=== PATIENT | male | born 1940 | race Caucasian/White ===

== ENCOUNTER → 2017-05-05 | Outpatient (CLI) | payer MEDICARE ==
--- NOTE | 2017-05-05 16:04 | REP ---
CHEST, TWO VIEWS: Two views of the chest are performed and compared to prior study of 09/18/2015. The patient is status post right pneumonectomy. There is shift of heart and mediastinal structures to the right and multiple metallic clips and sutures are seen on the right. Left lung demonstrates no abnormal opacities with mild linear fibroatelectatic change in the lung base. Heart size is not well evaluated. There is mild calcification and ectasia of the thoracic aorta. Visualized mediastinal silhouette is unchanged. There are mild degenerative changes of the spine. IMPRESSION: Stable postsurgical and chronic findings as discussed above. No change since prior study of 09/18/2015. Signed by Zachary Keith MD 05/06/2017 07:38 P
== END ==
LOC: M SMT 13:39
PROVIDERS: ATTEND Internal Medicine Pulmonary Disease
DX: J44.9 Chronic obstructive pulmonary disease, unspecified (principal)

== ENCOUNTER 2018-09-23 07:46 | Inpatient (IN) | payer MEDICARE ==
[2018-09-23] MEDS: ALBUTEROL SULFATE 2.5 MG/0.5 ML INH NEB SOLN NEB (08:34)
[2018-09-23 08:59] LABS: ABG BASE EXCESS 3.7 (-2.0-2.0); ABG HCO3 30.5 MEQ/L (22.0-26.0); ABG PARTIAL PRESSURE CO2 54.8 mmHg (35.0-45.0); ABG PARTIAL PRESSURE O2 73.9 mmHg (75.0-100.0); ABG STANDARD HCO3 27.7 MEQ/L (22.0-26.0); ABG TOTAL CO2 32.2 MEQ/L (23.0-31.0); ABG pH (ARTERIAL) 7.363 UNITS (7.350-7.450)
[2018-09-23] MEDS: ADVAIR HFA 230/21MCG INHALER INH ×2 (09:00→21:25)
[2018-09-23 09:13] LABS: BASO % 0.2 % (0.0-1.0); EOS # 0.2 10^3/uL (0.0-0.50); EOS % 1.9 % (0.0-3.0); HEMATOCRIT 44.6 % (42.0-52.0); HEMOGLOBIN 14.4 g/dl (13.5-17.5); IMMATURE GRANULOCYTE % 0.5 % (0-3.0); LYMPH # 1.2 10^3/uL (1.5-4.5); LYMPH % 14.4 % (24.0-44.0); MEAN CORPUSCULAR HEMOGLOBIN 30.4 pg (27.0-33.0); MEAN CORPUSCULAR HGB CONC 32.3 g/dl (32.0-36.5); MEAN CORPUSCULAR VOLUME 94.3 fl (80.0-96.0); MONO # 0.9 10^3/uL (0.0-0.8); MONO % 11.7 % (0.0-5.0); NEUTROPHILS # 5.8 10^3/uL (1.8-7.7); NEUTROPHILS % 71.3 % (36.0-66.0); PLATELET COUNT, AUTOMATED 205 10^3/uL (150-450); RED BLOOD COUNT 4.73 10^6/uL (4.30-6.10); WHITE BLOOD COUNT 8.1 10^3/uL (4.0-10.0)
[2018-09-23] MEDS: cefTRIAXone SOD 1 GM in D5W MINI-BAG PLUS 50 ML IV (09:26)
[2018-09-23 09:35] LABS: NT-PRO BNP 557 PG/ML (<450)
[2018-09-23 09:38] LABS: ANION GAP 6 MEQ/L (8-16); BLOOD UREA NITROGEN 14 MG/DL (7-18); CALCIUM LEVEL 8.7 MG/DL (8.8-10.2); CARBON DIOXIDE LEVEL 30 MEQ/L (21-32); CHLORIDE LEVEL 103 MEQ/L (98-107); CK-MB VALUE MASS < 1.0 NG/ML (<3.6); CPK CREATINE PHOSPHOKINASE 42 U/L (39-308); GLOMERULAR FILTRATION RATE > 60.0 (>42); GLUCOSE, FASTING 115 MG/DL (70-100); MB/CK RELATIVE INDEX 2.38 (< OR =4); POTASSIUM SERUM 4.4 MEQ/L (3.5-5.1); SODIUM LEVEL 139 MEQ/L (136-145); TROPONIN I < 0.02 NG/ML (< 0.10)
[2018-09-23] MEDS: AZITHROMYCIN INJ 500 MG, VIAL MATE ADAPTER 1 EACH in D5W 250 ML IV (10:21)
[2018-09-23] MEDS ORDERED: ONDANSETRON 4MG/2ML VIAL (J2405) IV (12:00)
[2018-09-23] MEDS: IPRATROPIUM 0.5MG/ALBUTEROL 2.5MG INH SOL UD 3ML (DUONEB)(J7620) NEB ×3 (14:12→20:00)
[2018-09-23] MEDS: methylPREDNISolone INJ 40 MG/1 ML VIAL (J2920) IV (15:27)
[2018-09-23] MEDS: ENOXAPARIN 40 MG/0.4 ML SYRINGE (J1650) SC (15:27)
[2018-09-23] MEDS: EZETIMIBE 10 MG TAB (ZETIA) PO (15:28)
[2018-09-23] MEDS: TAMSULOSIN 0.4 MG CAP PO (15:28)
[2018-09-23] MEDS: ASPIRIN 325 MG TAB PO (15:28)
[2018-09-23] MEDS: ACETAMINOPHEN TAB 650MG DOSE (2X325MG) PO (18:18)
[2018-09-24] MEDS: methylPREDNISolone INJ 40 MG/1 ML VIAL (J2920) IV ×2 (00:41→14:23)
[2018-09-24] MEDS: IPRATROPIUM 0.5MG/ALBUTEROL 2.5MG INH SOL UD 3ML (DUONEB)(J7620) NEB ×8 (04:00→23:20)
[2018-09-24 06:29] LABS: HEMATOCRIT 43.3 % (42.0-52.0); MEAN CORPUSCULAR HEMOGLOBIN 30.6 pg (27.0-33.0); MEAN CORPUSCULAR HGB CONC 32.3 g/dl (32.0-36.5); MEAN CORPUSCULAR VOLUME 94.5 fl (80.0-96.0); PLATELET COUNT, AUTOMATED 203 10^3/uL (150-450); RED BLOOD COUNT 4.58 10^6/uL (4.30-6.10); RED CELL DISTRIBUTION WIDTH 12.8 % (11.5-14.5); WHITE BLOOD COUNT 8.8 10^3/uL (4.0-10.0)
[2018-09-24 06:57] LABS: ALBUMIN 2.8 GM/DL (3.2-5.2); ALKALINE PHOSPHATASE 125 U/L (45-117); ALT/SGPT 20 U/L (12-78); ANION GAP 7 MEQ/L (8-16); AST/SGOT 14 U/L (7-37); BILIRUBIN,TOTAL 0.4 MG/DL (0.2-1.0); BLOOD UREA NITROGEN 16 MG/DL (7-18); CALCIUM LEVEL 8.6 MG/DL (8.8-10.2); CARBON DIOXIDE LEVEL 30 MEQ/L (21-32); CHLORIDE LEVEL 103 MEQ/L (98-107); CREATININE FOR GFR 1.28 MG/DL (0.70-1.30); GLOMERULAR FILTRATION RATE 57.9 (>42); GLUCOSE, FASTING 166 MG/DL (70-100); MAGNESIUM LEVEL 2.2 MG/DL (1.8-2.4); POTASSIUM SERUM 4.9 MEQ/L (3.5-5.1); SODIUM LEVEL 140 MEQ/L (136-145); TOTAL PROTEIN 6.8 GM/DL (6.4-8.2)
[2018-09-24] MEDS: ADVAIR HFA 230/21MCG INHALER INH ×2 (07:51→20:03)
[2018-09-24] MEDS: EZETIMIBE 10 MG TAB (ZETIA) PO (09:42)
[2018-09-24] MEDS: ASPIRIN 325 MG TAB PO (09:42)
[2018-09-24] MEDS: cefTRIAXone SOD 1 GM in D5W MINI-BAG PLUS 50 ML IV (09:42)
[2018-09-24] MEDS: TAMSULOSIN 0.4 MG CAP PO (09:42)
[2018-09-24] MEDS: ENOXAPARIN 40 MG/0.4 ML SYRINGE (J1650) SC (09:43)
[2018-09-24] MEDS: AZITHROMYCIN INJ 500 MG, VIAL MATE ADAPTER 1 EACH in D5W 250 ML IV (10:49)
[2018-09-25] MEDS: methylPREDNISolone INJ 40 MG/1 ML VIAL (J2920) IV ×2 (01:27→13:14)
[2018-09-25] MEDS: IPRATROPIUM 0.5MG/ALBUTEROL 2.5MG INH SOL UD 3ML (DUONEB)(J7620) NEB ×6 (03:17→23:20)
[2018-09-25 07:15] LABS: HEMATOCRIT 39.7 % (42.0-52.0); HEMOGLOBIN 12.9 g/dl (13.5-17.5); MEAN CORPUSCULAR HEMOGLOBIN 30.6 pg (27.0-33.0); MEAN CORPUSCULAR HGB CONC 32.5 g/dl (32.0-36.5); MEAN CORPUSCULAR VOLUME 94.3 fl (80.0-96.0); PLATELET COUNT, AUTOMATED 200 10^3/uL (150-450); RED BLOOD COUNT 4.21 10^6/uL (4.30-6.10); RED CELL DISTRIBUTION WIDTH 13.2 % (11.5-14.5); WHITE BLOOD COUNT 14.1 10^3/uL (4.0-10.0)
[2018-09-25] MEDS: ADVAIR HFA 230/21MCG INHALER INH ×2 (07:27→19:32)
[2018-09-25 07:43] LABS: ALBUMIN 2.7 GM/DL (3.2-5.2); ALBUMIN/GLOBULIN RATIO 0.75 (1.00-1.93); ALKALINE PHOSPHATASE 109 U/L (45-117); ALT/SGPT 16 U/L (12-78); ANION GAP 4 MEQ/L (8-16); AST/SGOT 12 U/L (7-37); BILIRUBIN,TOTAL 0.4 MG/DL (0.2-1.0); BLOOD UREA NITROGEN 24 MG/DL (7-18); CALCIUM LEVEL 8.8 MG/DL (8.8-10.2); CARBON DIOXIDE LEVEL 32 MEQ/L (21-32); CHLORIDE LEVEL 103 MEQ/L (98-107); CREATININE FOR GFR 1.18 MG/DL (0.70-1.30); GLOMERULAR FILTRATION RATE > 60.0 (>42); GLUCOSE, FASTING 154 MG/DL (70-100); MAGNESIUM LEVEL 2.3 MG/DL (1.8-2.4); POTASSIUM SERUM 4.6 MEQ/L (3.5-5.1); SODIUM LEVEL 139 MEQ/L (136-145); TOTAL PROTEIN 6.3 GM/DL (6.4-8.2)
[2018-09-25] MEDS: EZETIMIBE 10 MG TAB (ZETIA) PO (09:02)
[2018-09-25] MEDS: TAMSULOSIN 0.4 MG CAP PO (09:02)
[2018-09-25] MEDS: ASPIRIN 325 MG TAB PO (09:02)
[2018-09-25] MEDS: ENOXAPARIN 40 MG/0.4 ML SYRINGE (J1650) SC (09:03)
[2018-09-25] MEDS: cefTRIAXone SOD 1 GM in D5W MINI-BAG PLUS 50 ML IV (09:03)
[2018-09-25] MEDS: AZITHROMYCIN INJ 500 MG, VIAL MATE ADAPTER 1 EACH in D5W 250 ML IV (10:05)
[2018-09-26] MEDS: methylPREDNISolone INJ 40 MG/1 ML VIAL (J2920) IV (01:17)
[2018-09-26] MEDS: IPRATROPIUM 0.5MG/ALBUTEROL 2.5MG INH SOL UD 3ML (DUONEB)(J7620) NEB ×5 (03:58→21:05)
[2018-09-26 08:01] LABS: HEMATOCRIT 39.9 % (42.0-52.0); HEMOGLOBIN 12.8 g/dl (13.5-17.5); MEAN CORPUSCULAR HEMOGLOBIN 29.8 pg (27.0-33.0); MEAN CORPUSCULAR HGB CONC 32.1 g/dl (32.0-36.5); PLATELET COUNT, AUTOMATED 222 10^3/uL (150-450); RED BLOOD COUNT 4.29 10^6/uL (4.30-6.10); RED CELL DISTRIBUTION WIDTH 13.2 % (11.5-14.5); WHITE BLOOD COUNT 13.6 10^3/uL (4.0-10.0)
[2018-09-26] MEDS: predniSONE 20 MG TAB PO (08:22)
[2018-09-26] MEDS: TAMSULOSIN 0.4 MG CAP PO (08:22)
[2018-09-26] MEDS: ASPIRIN 325 MG TAB PO (08:22)
[2018-09-26] MEDS: ENOXAPARIN 40 MG/0.4 ML SYRINGE (J1650) SC (08:23)
[2018-09-26] MEDS: EZETIMIBE 10 MG TAB (ZETIA) PO (08:23)
[2018-09-26] MEDS: cefTRIAXone SOD 1 GM in D5W MINI-BAG PLUS 50 ML IV (08:23)
[2018-09-26 08:31] LABS: ALBUMIN 2.8 GM/DL (3.2-5.2); ALBUMIN/GLOBULIN RATIO 0.76 (1.00-1.93); ALKALINE PHOSPHATASE 97 U/L (45-117); ALT/SGPT 17 U/L (12-78); ANION GAP 4 MEQ/L (8-16); AST/SGOT 12 U/L (7-37); BILIRUBIN,TOTAL 0.2 MG/DL (0.2-1.0); BLOOD UREA NITROGEN 25 MG/DL (7-18); CALCIUM LEVEL 9.2 MG/DL (8.8-10.2); CARBON DIOXIDE LEVEL 33 MEQ/L (21-32); CHLORIDE LEVEL 104 MEQ/L (98-107); CREATININE FOR GFR 1.08 MG/DL (0.70-1.30); GLOMERULAR FILTRATION RATE > 60.0 (>42); GLUCOSE, FASTING 146 MG/DL (70-100); MAGNESIUM LEVEL 2.4 MG/DL (1.8-2.4); POTASSIUM SERUM 4.4 MEQ/L (3.5-5.1); SODIUM LEVEL 141 MEQ/L (136-145); TOTAL PROTEIN 6.5 GM/DL (6.4-8.2)
[2018-09-26] MEDS: ADVAIR HFA 230/21MCG INHALER INH ×2 (08:31→21:06)
[2018-09-26] MEDS: AZITHROMYCIN INJ 500 MG, VIAL MATE ADAPTER 1 EACH in D5W 250 ML IV (09:26)
[2018-09-27] MEDS: IPRATROPIUM 0.5MG/ALBUTEROL 2.5MG INH SOL UD 3ML (DUONEB)(J7620) NEB ×3 (00:09→08:00)
[2018-09-27] MEDS: ACETAMINOPHEN TAB 650MG DOSE (2X325MG) PO (05:12)
[2018-09-27 07:12] LABS: HEMATOCRIT 40.5 % (42.0-52.0); HEMOGLOBIN 12.8 g/dl (13.5-17.5); MEAN CORPUSCULAR HGB CONC 31.6 g/dl (32.0-36.5); MEAN CORPUSCULAR VOLUME 94.8 fl (80.0-96.0); PLATELET COUNT, AUTOMATED 206 10^3/uL (150-450); RED BLOOD COUNT 4.27 10^6/uL (4.30-6.10); RED CELL DISTRIBUTION WIDTH 13.4 % (11.5-14.5)
[2018-09-27 07:34] LABS: ALBUMIN 2.7 GM/DL (3.2-5.2); ALBUMIN/GLOBULIN RATIO 0.87 (1.00-1.93); ALKALINE PHOSPHATASE 88 U/L (45-117); ALT/SGPT 28 U/L (12-78); ANION GAP 4 MEQ/L (8-16); AST/SGOT 22 U/L (7-37); BILIRUBIN,TOTAL 0.4 MG/DL (0.2-1.0); BLOOD UREA NITROGEN 25 MG/DL (7-18); CALCIUM LEVEL 8.6 MG/DL (8.8-10.2); CARBON DIOXIDE LEVEL 33 MEQ/L (21-32); CHLORIDE LEVEL 104 MEQ/L (98-107); CREATININE FOR GFR 0.99 MG/DL (0.70-1.30); GLOMERULAR FILTRATION RATE > 60.0 (>42); GLUCOSE, FASTING 121 MG/DL (70-100); MAGNESIUM LEVEL 2.4 MG/DL (1.8-2.4); POTASSIUM SERUM 4.3 MEQ/L (3.5-5.1); SODIUM LEVEL 141 MEQ/L (136-145); TOTAL PROTEIN 5.8 GM/DL (6.4-8.2)
[2018-09-27] MEDS: ADVAIR HFA 230/21MCG INHALER INH (08:33)
[2018-09-27] MEDS: EZETIMIBE 10 MG TAB (ZETIA) PO (08:43)
[2018-09-27] MEDS: cefTRIAXone SOD 1 GM in D5W MINI-BAG PLUS 50 ML IV (08:43)
[2018-09-27] MEDS: predniSONE 20 MG TAB PO (08:43)
[2018-09-27] MEDS: ASPIRIN 325 MG TAB PO (08:43)
[2018-09-27] MEDS: ENOXAPARIN 40 MG/0.4 ML SYRINGE (J1650) SC (08:43)
[2018-09-27] MEDS: TAMSULOSIN 0.4 MG CAP PO (08:43)
[2018-09-27] MEDS: AZITHROMYCIN INJ 500 MG, VIAL MATE ADAPTER 1 EACH in D5W 250 ML IV (09:22)
== END 2018-09-27 13:15 | disposition home or self-care (01) | DRG 190 ==
LOC: M ED 07:46 → M ED INP 11:49 → M MSPAV 15:00
DX: J44.1 Chronic obstructive pulmonary disease with (acute) exacerbation (principal); J18.9 Pneumonia, unspecified organism; J44.0 Chronic obstructive pulmonary disease with (acute) lower respiratory infection; I10 Essential (primary) hypertension; N40.0 Benign prostatic hyperplasia without lower urinary tract symptoms; E78.5 Hyperlipidemia, unspecified; Z92.21 Personal history of antineoplastic chemotherapy; Z92.3 Personal history of irradiation; Z85.118 Personal history of other malignant neoplasm of bronchus and lung; Z79.82 Long term (current) use of aspirin; Z79.899 Other long term (current) drug therapy; Z79.51 Long term (current) use of inhaled steroids; Z87.891 Personal history of nicotine dependence

== ENCOUNTER 2018-10-07 02:26 | Inpatient (IN) | payer MEDICARE ==
[2018-10-07 03:02] LABS: ABG BASE EXCESS 4.3 (-2.0-2.0); ABG HCO3 31.5 MEQ/L (22.0-26.0); ABG O2 SATURATION 95.9 % (95.0-99.0); ABG PARTIAL PRESSURE CO2 57.3 mmHg (35.0-45.0); ABG PARTIAL PRESSURE O2 80.1 mmHg (75.0-100.0); ABG STANDARD HCO3 28.3 MEQ/L (22.0-26.0); ABG TOTAL CO2 33.3 MEQ/L (23.0-31.0); ABG pH (ARTERIAL) 7.358 UNITS (7.350-7.450)
[2018-10-07] MEDS: IPRATROPIUM 0.5MG/ALBUTEROL 2.5MG INH SOL UD 3ML (DUONEB)(J7620) NEB ×5 (03:02→20:00)
[2018-10-07 03:07] LABS: BASO % 0.1 % (0.0-1.0); EOS # 0.2 10^3/uL (0.0-0.50); EOS % 1.1 % (0.0-3.0); HEMATOCRIT 48.1 % (42.0-52.0); HEMOGLOBIN 15.3 g/dl (13.5-17.5); IMMATURE GRANULOCYTE % 0.8 % (0-3.0); LYMPH # 1.3 10^3/uL (1.5-4.5); LYMPH % 7.5 % (24.0-44.0); MEAN CORPUSCULAR HEMOGLOBIN 30.5 pg (27.0-33.0); MEAN CORPUSCULAR HGB CONC 31.8 g/dl (32.0-36.5); MONO # 1.3 10^3/uL (0.0-0.8); MONO % 7.1 % (0.0-5.0); NEUTROPHILS # 14.6 10^3/uL (1.8-7.7); NEUTROPHILS % 83.4 % (36.0-66.0); PLATELET COUNT, AUTOMATED 288 10^3/uL (150-450); RED BLOOD COUNT 5.01 10^6/uL (4.30-6.10); RED CELL DISTRIBUTION WIDTH 13.2 % (11.5-14.5); WHITE BLOOD COUNT 17.5 10^3/uL (4.0-10.0)
[2018-10-07 03:18] LABS: LACTIC ACID SEPSIS PROTOCOL 0.8 MMOL/L (0.4-2.0)
[2018-10-07 03:20] LABS: ANION GAP 5 MEQ/L (8-16); BLOOD UREA NITROGEN 20 MG/DL (7-18); CALCIUM LEVEL 8.7 MG/DL (8.8-10.2); CARBON DIOXIDE LEVEL 33 MEQ/L (21-32); CHLORIDE LEVEL 100 MEQ/L (98-107); CPK CREATINE PHOSPHOKINASE 33 U/L (39-308); CREATININE FOR GFR 1.37 MG/DL (0.70-1.30); GLOMERULAR FILTRATION RATE 53.5 (>42); GLUCOSE, FASTING 103 MG/DL (70-100); MB/CK RELATIVE INDEX 4.85 (< OR =4); NT-PRO BNP 490 PG/ML (<450); POTASSIUM SERUM 5.1 MEQ/L (3.5-5.1); SODIUM LEVEL 138 MEQ/L (136-145); TROPONIN I < 0.02 NG/ML (< 0.10)
[2018-10-07] MEDS ORDERED: ISOVUE-370 76% 100ML VIAL (Q9967) As Ordered (03:48)
[2018-10-07] MEDS: PIPERACILLIN/TAZOBACTAM SOD 3.375 GM in D5W MINI-BAG PLUS 50 ML IV ×3 (06:15→22:35)
[2018-10-07] MEDS ORDERED: BISACODYL 5 MG TAB PO (06:30)
[2018-10-07] MEDS: HEPARIN SOD (PORCINE) 5000 UNITS/ML VIAL SC ×3 (06:58→21:14)
[2018-10-07] MEDS: MOM 30ML SUSPENSION UDC PO (09:00)
[2018-10-07] MEDS: DOXYCYCLINE HYCLATE 100 MG in D5W MINI-BAG PLUS 100 ML IV ×2 (09:00→21:14)
[2018-10-07] MEDS: PANTOPRAZOLE 40MG TAB (PROTONIX) PO (10:06)
[2018-10-07] MEDS: guaiFENesin ER 600 MG TAB PO ×2 (10:06→21:14)
[2018-10-07] MEDS: TAMSULOSIN 0.4 MG CAP PO (10:06)
[2018-10-07] MEDS: NS 1,000 ML IV (10:07)
[2018-10-07] MEDS: methylPREDNISolone INJ 40 MG/1 ML VIAL (J2920) IV ×3 (10:07→21:11)
[2018-10-07] MEDS: VANCOMYCIN HCL 1,000 MG, VIAL MATE ADAPTER 1 EACH in D5W 250 ML IV ×2 (11:07→23:55)
[2018-10-07] MEDS: ASPIRIN 325 MG TAB PO (11:16)
[2018-10-07] MEDS ORDERED: MIDAZOLAM INJ 2 MG/2 ML VIAL (J2250) As Ordered ×3 (12:45)
[2018-10-07] MEDS ORDERED: LIDOCAINE 1% MDV 20ML VIAL As Ordered ×2 (12:45→13:00)
[2018-10-07] MEDS: MIDAZOLAM INJ 2 MG/2 ML VIAL (J2250) IV (12:57)
[2018-10-07] MEDS: LIDOCAINE 1% MDV 20ML VIAL SC (12:59)
[2018-10-07] MEDS ORDERED: FLUMAZENIL 0.5 MG/5 ML VIAL As Ordered (13:00)
[2018-10-07] MEDS ORDERED: zolPIDEM TARTRATE 5 MG TAB PO (13:15)
[2018-10-07] MEDS ORDERED: PERCOCET 5MG/325MG TAB PO (13:15)
[2018-10-07 13:45] LABS: BASO % 0.1 % (0.0-1.0); HEMATOCRIT 45.4 % (42.0-52.0); HEMOGLOBIN 14.7 g/dl (13.5-17.5); IMMATURE GRANULOCYTE % 0.6 % (0-3.0); LYMPH # 0.4 10^3/uL (1.5-4.5); LYMPH % 3.1 % (24.0-44.0); MEAN CORPUSCULAR HEMOGLOBIN 30.8 pg (27.0-33.0); MEAN CORPUSCULAR HGB CONC 32.4 g/dl (32.0-36.5); MONO # 0.1 10^3/uL (0.0-0.8); MONO % 0.7 % (0.0-5.0); NEUTROPHILS # 13.4 10^3/uL (1.8-7.7); NEUTROPHILS % 95.5 % (36.0-66.0); PLATELET COUNT, AUTOMATED 245 10^3/uL (150-450); RED BLOOD COUNT 4.78 10^6/uL (4.30-6.10)
[2018-10-07 13:51] LABS: PH BODY FLUID 7.562 UNITS (NOT ESTABLISHED); SOURCE, BODY FLUID pH PLEURAL
[2018-10-07 13:55] LABS: BF MONONUCLEAR CELL % 73.1 % (0-0); BF POLYMORPHONUCLEAR CELL % 26.9 % (0-0); RBC BODY FLUID 173 10^3/uL (<2); WBC BODY FLUID 1337 /uL (0-10)
[2018-10-07 13:56] LABS: PLEURAL FL COLOR RED (COLORLESS); SOURCE, BODY FLUID PLEURAL
[2018-10-07 13:57] LABS: APPEARANCE, BODY FLUID CLOUDY (CLEAR); BF DIFF IF INDICATED? YES (NO)
[2018-10-07 14:00] LABS: ABG BASE EXCESS 3.2 (-2.0-2.0); ABG HCO3 31.5 MEQ/L (22.0-26.0); ABG O2 SATURATION 96.5 % (95.0-99.0); ABG PARTIAL PRESSURE O2 88.4 mmHg (75.0-100.0); ABG STANDARD HCO3 27.3 MEQ/L (22.0-26.0); ABG TOTAL CO2 33.5 MEQ/L (23.0-31.0); ABG pH (ARTERIAL) 7.312 UNITS (7.350-7.450)
[2018-10-07] MEDS: LEVALBUTEROL 1.25 MG/0.5 ML CONCENTRATE NEB NEB ×2 (14:00→20:21)
[2018-10-07 14:02] LABS: ABG PARTIAL PRESSURE CO2 63.7 mmHg (35.0-45.0)
[2018-10-07 14:14] LABS: AMYLASE, BODY FLUID 32 U/L (NOT ESTABLISHED); ANION GAP 6 MEQ/L (8-16); BLOOD UREA NITROGEN 23 MG/DL (7-18); CALCIUM LEVEL 8.7 MG/DL (8.8-10.2); CARBON DIOXIDE LEVEL 31 MEQ/L (21-32); CHLORIDE LEVEL 100 MEQ/L (98-107); CHOLESTEROL, BODY FLUID 57 MG/DL (NOT ESTABLISHED); GLOMERULAR FILTRATION RATE 56.8 (>42); GLUCOSE, FASTING 177 MG/DL (70-100); LDH LACTATE DEHYDROGENASE 196 U/L (87-241); LDH, BODY FLUID 383 U/L (NOT ESTABLISHED); POTASSIUM SERUM 5.2 MEQ/L (3.5-5.1); SODIUM LEVEL 137 MEQ/L (136-145); SOURCE, BODY FLUID ALBUMIN PLEURAL; SOURCE, BODY FLUID AMYLASE PLEURAL; SOURCE, BODY FLUID CHOL PLEURAL; SOURCE, BODY FLUID GLUCOSE PLEURAL; SOURCE, BODY FLUID LDH PLEURAL; SOURCE, BODY FLUID TOT PROTEIN PLEURAL; SOURCE, BODY FLUID TRIG PLEURAL; TOTAL PROTEIN, BODY FLUID 3.2 G/DL (NOT ESTABLISHED); TRIGLYCERIDE, BODY FLUID 25 MG/DL (NOT ESTABLISHED)
[2018-10-07] MEDS: VANCOMYCIN HCL 500 MG in D5W MINI-BAG PLUS 100 ML IV (14:57)
[2018-10-07] MEDS: DOCUSATE SODIUM 100 MG CAP PO ×2 (14:57→21:14)
[2018-10-07] MEDS: KCL 20MEQ IN D5/NS 1000ML 1,000 ML IV (14:58)
[2018-10-07 15:53] LABS: ABG BASE EXCESS 2.7 (-2.0-2.0); ABG HCO3 30.5 MEQ/L (22.0-26.0); ABG O2 SATURATION 97.4 % (95.0-99.0); ABG PARTIAL PRESSURE CO2 60.6 mmHg (35.0-45.0); ABG PARTIAL PRESSURE O2 96.7 mmHg (75.0-100.0); ABG STANDARD HCO3 26.9 MEQ/L (22.0-26.0); ABG TOTAL CO2 32.4 MEQ/L (23.0-31.0)
[2018-10-07] MEDS ORDERED: HEPARIN SOD (PORCINE) 5000 UNITS/ML VIAL SC (21:00)
[2018-10-08] MEDS: LEVALBUTEROL 1.25 MG/0.5 ML CONCENTRATE NEB NEB ×4 (02:03→20:00)
[2018-10-08] MEDS: KCL 20MEQ IN D5/NS 1000ML 1,000 ML IV (02:33)
[2018-10-08 05:09] LABS: BASO % 0.1 % (0.0-1.0); HEMATOCRIT 43.6 % (42.0-52.0); HEMOGLOBIN 14.1 g/dl (13.5-17.5); IMMATURE GRANULOCYTE % 0.9 % (0-3.0); LYMPH # 0.4 10^3/uL (1.5-4.5); LYMPH % 1.5 % (24.0-44.0); MEAN CORPUSCULAR HEMOGLOBIN 30.4 pg (27.0-33.0); MEAN CORPUSCULAR HGB CONC 32.3 g/dl (32.0-36.5); MONO # 0.6 10^3/uL (0.0-0.8); MONO % 2.1 % (0.0-5.0); NEUTROPHILS % 95.4 % (36.0-66.0); PLATELET COUNT, AUTOMATED 242 10^3/uL (150-450); RED BLOOD COUNT 4.64 10^6/uL (4.30-6.10); RED CELL DISTRIBUTION WIDTH 12.8 % (11.5-14.5); WHITE BLOOD COUNT 27.5 10^3/uL (4.0-10.0)
[2018-10-08 05:15] LABS: ANION GAP 4 MEQ/L (8-16); BLOOD UREA NITROGEN 22 MG/DL (7-18); CALCIUM LEVEL 8.4 MG/DL (8.8-10.2); CARBON DIOXIDE LEVEL 30 MEQ/L (21-32); CHLORIDE LEVEL 104 MEQ/L (98-107); CREATININE FOR GFR 1.22 MG/DL (0.70-1.30); GLOMERULAR FILTRATION RATE > 60.0 (>42); GLUCOSE, FASTING 170 MG/DL (70-100); POTASSIUM SERUM 4.8 MEQ/L (3.5-5.1); SODIUM LEVEL 138 MEQ/L (136-145)
[2018-10-08 05:41] LABS: NEUTROPHILS # 26.2 10^3/uL (1.8-7.7); POSITIVE DIFF POS FLAG
[2018-10-08 05:55] LABS: ABG BASE EXCESS 1.9 (-2.0-2.0); ABG HCO3 29.4 MEQ/L (22.0-26.0); ABG O2 SATURATION 97.5 % (95.0-99.0); ABG PARTIAL PRESSURE CO2 58.5 mmHg (35.0-45.0); ABG PARTIAL PRESSURE O2 94.5 mmHg (75.0-100.0); ABG STANDARD HCO3 26.1 MEQ/L (22.0-26.0); ABG TOTAL CO2 31.2 MEQ/L (23.0-31.0); ABG pH (ARTERIAL) 7.319 UNITS (7.350-7.450)
[2018-10-08] MEDS: HEPARIN SOD (PORCINE) 5000 UNITS/ML VIAL SC ×3 (06:42→20:33)
[2018-10-08] MEDS: PIPERACILLIN/TAZOBACTAM SOD 3.375 GM in D5W MINI-BAG PLUS 50 ML IV ×3 (06:42→23:00)
[2018-10-08] MEDS: methylPREDNISolone INJ 40 MG/1 ML VIAL (J2920) IV ×2 (06:42→17:37)
[2018-10-08] MEDS: IPRATROPIUM 0.5MG/ALBUTEROL 2.5MG INH SOL UD 3ML (DUONEB)(J7620) NEB ×4 (07:56→20:00)
[2018-10-08] MEDS: MOM 30ML SUSPENSION UDC PO (08:23)
[2018-10-08] MEDS: PANTOPRAZOLE 40MG TAB (PROTONIX) PO (08:23)
[2018-10-08] MEDS: DOXYCYCLINE HYCLATE 100 MG in D5W MINI-BAG PLUS 100 ML IV (08:23)
[2018-10-08] MEDS: DOCUSATE SODIUM 100 MG CAP PO ×2 (08:23→20:33)
[2018-10-08] MEDS: TAMSULOSIN 0.4 MG CAP PO (08:23)
[2018-10-08] MEDS: guaiFENesin ER 600 MG TAB PO ×2 (08:24→20:33)
[2018-10-08 09:42] LABS: ALBUMIN 2.6 GM/DL (3.2-5.2); ALBUMIN/GLOBULIN RATIO 0.72 (1.00-1.93); ALKALINE PHOSPHATASE 76 U/L (45-117); ALT/SGPT 21 U/L (12-78); AST/SGOT 11 U/L (7-37); BILIRUBIN,DIRECT 0.1 MG/DL (0.0-0.2); BILIRUBIN,TOTAL 0.4 MG/DL (0.2-1.0); TOTAL PROTEIN 6.2 GM/DL (6.4-8.2)
[2018-10-08] MEDS: ASPIRIN 325 MG TAB PO (11:01)
[2018-10-08] MEDS: VANCOMYCIN HCL 1,000 MG, VIAL MATE ADAPTER 1 EACH in D5W 250 ML IV ×2 (11:01→23:00)
[2018-10-08] MEDS: ADVAIR HFA 230/21MCG INHALER INH ×2 (14:01→20:40)
[2018-10-08 22:12] LABS: VANCOMYCIN LEVEL TROUGH 15.5 UG/ML (10.0-20.0)
[2018-10-09] MEDS: LEVALBUTEROL 1.25 MG/0.5 ML CONCENTRATE NEB NEB ×4 (02:00→20:00)
[2018-10-09 04:20] LABS: BASO % 0.1 % (0.0-1.0); HEMATOCRIT 41.8 % (42.0-52.0); HEMOGLOBIN 13.3 g/dl (13.5-17.5); IMMATURE GRANULOCYTE % 1.6 % (0-3.0); LYMPH # 0.4 10^3/uL (1.5-4.5); LYMPH % 1.6 % (24.0-44.0); MEAN CORPUSCULAR HGB CONC 31.8 g/dl (32.0-36.5); MEAN CORPUSCULAR VOLUME 94.4 fl (80.0-96.0); MONO # 0.7 10^3/uL (0.0-0.8); MONO % 2.7 % (0.0-5.0); NEUTROPHILS # 24.1 10^3/uL (1.8-7.7); PLATELET COUNT, AUTOMATED 227 10^3/uL (150-450); RED BLOOD COUNT 4.43 10^6/uL (4.30-6.10); RED CELL DISTRIBUTION WIDTH 13.2 % (11.5-14.5); WHITE BLOOD COUNT 25.6 10^3/uL (4.0-10.0)
[2018-10-09 04:41] LABS: ANION GAP 3 MEQ/L (8-16); BLOOD UREA NITROGEN 22 MG/DL (7-18); CALCIUM LEVEL 8.3 MG/DL (8.8-10.2); CARBON DIOXIDE LEVEL 34 MEQ/L (21-32); CHLORIDE LEVEL 102 MEQ/L (98-107); CREATININE FOR GFR 1.16 MG/DL (0.70-1.30); GLOMERULAR FILTRATION RATE > 60.0 (>42); GLUCOSE, FASTING 142 MG/DL (70-100); SODIUM LEVEL 139 MEQ/L (136-145)
[2018-10-09] MEDS: PIPERACILLIN/TAZOBACTAM SOD 3.375 GM in D5W MINI-BAG PLUS 50 ML IV ×3 (05:49→22:17)
[2018-10-09] MEDS: HEPARIN SOD (PORCINE) 5000 UNITS/ML VIAL SC ×3 (05:50→22:00)
[2018-10-09] MEDS: methylPREDNISolone INJ 40 MG/1 ML VIAL (J2920) IV (05:50)
[2018-10-09] MEDS: IPRATROPIUM 0.5MG/ALBUTEROL 2.5MG INH SOL UD 3ML (DUONEB)(J7620) NEB ×4 (08:00→20:00)
[2018-10-09] MEDS: ADVAIR HFA 230/21MCG INHALER INH ×2 (08:11→20:40)
[2018-10-09] MEDS: ASPIRIN 325 MG TAB PO (08:59)
[2018-10-09] MEDS: PANTOPRAZOLE 40MG TAB (PROTONIX) PO (09:00)
[2018-10-09] MEDS: TAMSULOSIN 0.4 MG CAP PO (09:00)
[2018-10-09] MEDS: MOM 30ML SUSPENSION UDC PO (09:01)
[2018-10-09] MEDS: DOCUSATE SODIUM 100 MG CAP PO ×2 (09:01→20:21)
[2018-10-09] MEDS: guaiFENesin ER 600 MG TAB PO ×2 (09:01→20:21)
[2018-10-09] MEDS: SENNA 8.6 MG TAB (SENOKOT) PO ×2 (11:26→20:21)
[2018-10-09] MEDS: VANCOMYCIN HCL 1,000 MG, VIAL MATE ADAPTER 1 EACH in D5W 250 ML IV ×2 (11:26→22:17)
[2018-10-10] MEDS: LEVALBUTEROL 1.25 MG/0.5 ML CONCENTRATE NEB NEB ×4 (02:00→19:37)
[2018-10-10 04:32] LABS: BASO % 0.1 % (0.0-1.0); EOS % 0.1 % (0.0-3.0); HEMATOCRIT 42.1 % (42.0-52.0); HEMOGLOBIN 13.4 g/dl (13.5-17.5); LYMPH # 0.6 10^3/uL (1.5-4.5); LYMPH % 3.2 % (24.0-44.0); MEAN CORPUSCULAR HEMOGLOBIN 30.2 pg (27.0-33.0); MEAN CORPUSCULAR HGB CONC 31.8 g/dl (32.0-36.5); MEAN CORPUSCULAR VOLUME 94.8 fl (80.0-96.0); MONO # 1.1 10^3/uL (0.0-0.8); MONO % 5.6 % (0.0-5.0); NEUTROPHILS # 17.3 10^3/uL (1.8-7.7); PLATELET COUNT, AUTOMATED 215 10^3/uL (150-450); RED BLOOD COUNT 4.44 10^6/uL (4.30-6.10); RED CELL DISTRIBUTION WIDTH 13.4 % (11.5-14.5); WHITE BLOOD COUNT 19.3 10^3/uL (4.0-10.0)
[2018-10-10 04:54] LABS: ANION GAP 4 MEQ/L (8-16); BLOOD UREA NITROGEN 22 MG/DL (7-18); CALCIUM LEVEL 8.6 MG/DL (8.8-10.2); CARBON DIOXIDE LEVEL 36 MEQ/L (21-32); CHLORIDE LEVEL 101 MEQ/L (98-107); CREATININE FOR GFR 1.06 MG/DL (0.70-1.30); GLOMERULAR FILTRATION RATE > 60.0 (>42); GLUCOSE, FASTING 111 MG/DL (70-100); SODIUM LEVEL 141 MEQ/L (136-145)
[2018-10-10] MEDS: PIPERACILLIN/TAZOBACTAM SOD 3.375 GM in D5W MINI-BAG PLUS 50 ML IV (06:12)
[2018-10-10] MEDS: HEPARIN SOD (PORCINE) 5000 UNITS/ML VIAL SC ×3 (06:13→20:11)
[2018-10-10] MEDS: ADVAIR HFA 230/21MCG INHALER INH ×2 (07:37→19:37)
[2018-10-10] MEDS: IPRATROPIUM 0.5MG/ALBUTEROL 2.5MG INH SOL UD 3ML (DUONEB)(J7620) NEB ×4 (07:38→19:37)
[2018-10-10] MEDS: DOCUSATE SODIUM 100 MG CAP PO ×2 (09:47→20:11)
[2018-10-10] MEDS: guaiFENesin ER 600 MG TAB PO ×2 (09:48→20:11)
[2018-10-10] MEDS: ASPIRIN 325 MG TAB PO (09:48)
[2018-10-10] MEDS: SENNA 8.6 MG TAB (SENOKOT) PO ×2 (09:48→20:11)
[2018-10-10] MEDS: predniSONE 20 MG TAB PO (09:48)
[2018-10-10] MEDS: PANTOPRAZOLE 40MG TAB (PROTONIX) PO (09:48)
[2018-10-10] MEDS: TAMSULOSIN 0.4 MG CAP PO (09:48)
[2018-10-10] MEDS: MOM 30ML SUSPENSION UDC PO (10:05)
[2018-10-10] MEDS: VANCOMYCIN HCL 1,000 MG, VIAL MATE ADAPTER 1 EACH in D5W 250 ML IV (12:24)
[2018-10-10] MEDS: LevoFLOXacin 500 MG TABLET PO (14:18)
[2018-10-11] MEDS: LEVALBUTEROL 1.25 MG/0.5 ML CONCENTRATE NEB NEB ×4 (01:55→20:00)
[2018-10-11 04:13] LABS: BASO % 0.1 % (0.0-1.0); EOS % 0.2 % (0.0-3.0); IMMATURE GRANULOCYTE % 0.7 % (0-3.0); LYMPH # 0.8 10^3/uL (1.5-4.5); LYMPH % 5.4 % (24.0-44.0); MEAN CORPUSCULAR HEMOGLOBIN 29.7 pg (27.0-33.0); MEAN CORPUSCULAR HGB CONC 31.1 g/dl (32.0-36.5); MEAN CORPUSCULAR VOLUME 95.5 fl (80.0-96.0); MONO # 0.9 10^3/uL (0.0-0.8); MONO % 6.2 % (0.0-5.0); NEUTROPHILS # 12.3 10^3/uL (1.8-7.7); NEUTROPHILS % 87.4 % (36.0-66.0); PLATELET COUNT, AUTOMATED 195 10^3/uL (150-450); RED BLOOD COUNT 4.71 10^6/uL (4.30-6.10); RED CELL DISTRIBUTION WIDTH 13.4 % (11.5-14.5); WHITE BLOOD COUNT 14.1 10^3/uL (4.0-10.0)
[2018-10-11 04:32] LABS: ANION GAP 0 MEQ/L (8-16); BLOOD UREA NITROGEN 23 MG/DL (7-18); CALCIUM LEVEL 8.5 MG/DL (8.8-10.2); CARBON DIOXIDE LEVEL 38 MEQ/L (21-32); CHLORIDE LEVEL 101 MEQ/L (98-107); GLOMERULAR FILTRATION RATE > 60.0 (>42); GLUCOSE, FASTING 91 MG/DL (70-100); SODIUM LEVEL 139 MEQ/L (136-145)
[2018-10-11] MEDS: HEPARIN SOD (PORCINE) 5000 UNITS/ML VIAL SC ×3 (07:50→20:25)
[2018-10-11] MEDS: LevoFLOXacin 500 MG TABLET PO (07:50)
[2018-10-11] MEDS: PERCOCET 5MG/325MG TAB PO (07:58)
[2018-10-11] MEDS: IPRATROPIUM 0.5MG/ALBUTEROL 2.5MG INH SOL UD 3ML (DUONEB)(J7620) NEB ×4 (08:04→20:00)
[2018-10-11] MEDS: guaiFENesin ER 600 MG TAB PO ×2 (08:43→20:24)
[2018-10-11] MEDS: ASPIRIN 325 MG TAB PO (08:43)
[2018-10-11] MEDS: TAMSULOSIN 0.4 MG CAP PO (08:45)
[2018-10-11] MEDS: PANTOPRAZOLE 40MG TAB (PROTONIX) PO (08:45)
[2018-10-11] MEDS: predniSONE 20 MG TAB PO (08:45)
[2018-10-11] MEDS: MOM 30ML SUSPENSION UDC PO (08:45)
[2018-10-11] MEDS: SENNA 8.6 MG TAB (SENOKOT) PO ×2 (08:46→20:24)
[2018-10-11] MEDS: DOCUSATE SODIUM 100 MG CAP PO ×2 (08:46→20:24)
[2018-10-11 09:16] LABS: PROCALCITONIN <0.05 NG/ML (<0.10)
[2018-10-11] MEDS: ADVAIR HFA 230/21MCG INHALER INH ×2 (11:32→21:00)
[2018-10-11] MEDS: ONDANSETRON 4MG/2ML VIAL (J2405) IV (12:20)
[2018-10-11] MEDS ORDERED: E-Z-HD 98% w/w 340GM SUSP BTL As Ordered (13:08)
[2018-10-12 00:06] LABS: MYCOPLASMA PNEUMONIAE IgM <770 U/mL (0-769)
[2018-10-12 00:06] LABS: LEGIONELLA ANTIGEN URINE Negative (Negative)
[2018-10-12] MEDS: LEVALBUTEROL 1.25 MG/0.5 ML CONCENTRATE NEB NEB ×4 (02:06→20:00)
[2018-10-12] MEDS: HEPARIN SOD (PORCINE) 5000 UNITS/ML VIAL SC ×3 (05:22→21:06)
[2018-10-12] MEDS: LevoFLOXacin 500 MG TABLET PO (05:22)
[2018-10-12 05:38] LABS: BASO % 0.1 % (0.0-1.0); HEMATOCRIT 42.3 % (42.0-52.0); HEMOGLOBIN 13.4 g/dl (13.5-17.5); IMMATURE GRANULOCYTE % 0.4 % (0-3.0); LYMPH # 0.4 10^3/uL (1.5-4.5); LYMPH % 3.9 % (24.0-44.0); MEAN CORPUSCULAR HEMOGLOBIN 30.3 pg (27.0-33.0); MEAN CORPUSCULAR HGB CONC 31.7 g/dl (32.0-36.5); MEAN CORPUSCULAR VOLUME 95.7 fl (80.0-96.0); MONO # 0.4 10^3/uL (0.0-0.8); MONO % 4.5 % (0.0-5.0); NEUTROPHILS # 8.4 10^3/uL (1.8-7.7); NEUTROPHILS % 91.1 % (36.0-66.0); PLATELET COUNT, AUTOMATED 159 10^3/uL (150-450); RED BLOOD COUNT 4.42 10^6/uL (4.30-6.10); RED CELL DISTRIBUTION WIDTH 13.1 % (11.5-14.5); WHITE BLOOD COUNT 9.3 10^3/uL (4.0-10.0)
[2018-10-12 05:51] LABS: ANION GAP 2 MEQ/L (8-16); BLOOD UREA NITROGEN 22 MG/DL (7-18); CALCIUM LEVEL 8.3 MG/DL (8.8-10.2); CARBON DIOXIDE LEVEL 38 MEQ/L (21-32); CHLORIDE LEVEL 97 MEQ/L (98-107); CREATININE FOR GFR 1.06 MG/DL (0.70-1.30); GLOMERULAR FILTRATION RATE > 60.0 (>42); GLUCOSE, FASTING 131 MG/DL (70-100); POTASSIUM SERUM 5.5 MEQ/L (3.5-5.1); SODIUM LEVEL 137 MEQ/L (136-145)
[2018-10-12] MEDS: ADVAIR HFA 230/21MCG INHALER INH ×2 (07:21→19:58)
[2018-10-12] MEDS: IPRATROPIUM 0.5MG/ALBUTEROL 2.5MG INH SOL UD 3ML (DUONEB)(J7620) NEB ×4 (08:00→20:00)
[2018-10-12] MEDS: ASPIRIN 325 MG TAB PO (09:11)
[2018-10-12] MEDS: guaiFENesin ER 600 MG TAB PO ×2 (09:11→21:05)
[2018-10-12] MEDS: MOM 30ML SUSPENSION UDC PO (09:11)
[2018-10-12] MEDS: DOCUSATE SODIUM 100 MG CAP PO ×2 (09:11→21:05)
[2018-10-12] MEDS: SENNA 8.6 MG TAB (SENOKOT) PO ×2 (09:11→21:05)
[2018-10-12] MEDS: predniSONE 20 MG TAB PO (09:12)
[2018-10-12] MEDS: PANTOPRAZOLE 40MG TAB (PROTONIX) PO (09:16)
[2018-10-12] MEDS: TAMSULOSIN 0.4 MG CAP PO (09:16)
[2018-10-12] MEDS ORDERED: VARIBAR NECTAR 40% w/v 240ML SUSP BTL As Ordered (12:18)
[2018-10-12] MEDS ORDERED: VARIBAR PUDDING 40% w/v 230ML TUBE As Ordered (12:18)
[2018-10-12] MEDS ORDERED: E-Z-PAQUE 96% w/w SUSP 176GM BTL As Ordered (12:19)
[2018-10-12] MEDS: PERCOCET 5MG/325MG TAB PO (19:00)
[2018-10-13] MEDS: LEVALBUTEROL 1.25 MG/0.5 ML CONCENTRATE NEB NEB ×4 (02:00→20:00)
[2018-10-13] MEDS: HEPARIN SOD (PORCINE) 5000 UNITS/ML VIAL SC ×3 (05:17→20:40)
[2018-10-13] MEDS: LevoFLOXacin 500 MG TABLET PO (05:17)
[2018-10-13 05:18] LABS: BASO % 0.1 % (0.0-1.0); EOS # 0.1 10^3/uL (0.0-0.50); EOS % 0.5 % (0.0-3.0); HEMATOCRIT 41.7 % (42.0-52.0); HEMOGLOBIN 13.1 g/dl (13.5-17.5); IMMATURE GRANULOCYTE % 0.4 % (0-3.0); LYMPH # 0.9 10^3/uL (1.5-4.5); LYMPH % 6.4 % (24.0-44.0); MEAN CORPUSCULAR HEMOGLOBIN 29.6 pg (27.0-33.0); MEAN CORPUSCULAR HGB CONC 31.4 g/dl (32.0-36.5); MEAN CORPUSCULAR VOLUME 94.3 fl (80.0-96.0); MONO # 0.8 10^3/uL (0.0-0.8); MONO % 5.8 % (0.0-5.0); NEUTROPHILS # 11.4 10^3/uL (1.8-7.7); NEUTROPHILS % 86.8 % (36.0-66.0); PLATELET COUNT, AUTOMATED 159 10^3/uL (150-450); RED BLOOD COUNT 4.42 10^6/uL (4.30-6.10); RED CELL DISTRIBUTION WIDTH 13.1 % (11.5-14.5); WHITE BLOOD COUNT 13.2 10^3/uL (4.0-10.0)
[2018-10-13 05:32] LABS: ANION GAP 2 MEQ/L (8-16); BLOOD UREA NITROGEN 23 MG/DL (7-18); CALCIUM LEVEL 8.6 MG/DL (8.8-10.2); CARBON DIOXIDE LEVEL 38 MEQ/L (21-32); CHLORIDE LEVEL 98 MEQ/L (98-107); CREATININE FOR GFR 1.05 MG/DL (0.70-1.30); GLOMERULAR FILTRATION RATE > 60.0 (>42); GLUCOSE, FASTING 100 MG/DL (70-100); SODIUM LEVEL 138 MEQ/L (136-145)
[2018-10-13] MEDS: IPRATROPIUM 0.5MG/ALBUTEROL 2.5MG INH SOL UD 3ML (DUONEB)(J7620) NEB ×3 (07:35→20:00)
[2018-10-13] MEDS: ADVAIR HFA 230/21MCG INHALER INH ×2 (07:45→20:31)
[2018-10-13] MEDS: ONDANSETRON 4MG/2ML VIAL (J2405) IV (08:50)
[2018-10-13] MEDS: TAMSULOSIN 0.4 MG CAP PO (12:32)
[2018-10-13] MEDS: DOCUSATE SODIUM 100 MG CAP PO ×2 (12:32→20:39)
[2018-10-13] MEDS: PANTOPRAZOLE 40MG TAB (PROTONIX) PO (12:33)
[2018-10-13] MEDS: ASPIRIN 325 MG TAB PO (12:33)
[2018-10-13] MEDS: SENNA 8.6 MG TAB (SENOKOT) PO ×2 (12:33→20:37)
[2018-10-13] MEDS: predniSONE 20 MG TAB PO (12:33)
[2018-10-13] MEDS: guaiFENesin ER 600 MG TAB PO ×2 (12:34→20:38)
[2018-10-13] MEDS: MOM 30ML SUSPENSION UDC PO (12:36)
[2018-10-13] MEDS: NS 1,000 ML IV (16:50)
[2018-10-14] MEDS: LEVALBUTEROL 1.25 MG/0.5 ML CONCENTRATE NEB NEB ×4 (01:32→20:00)
[2018-10-14 05:38] LABS: BASO % 0.1 % (0.0-1.0); HEMATOCRIT 45.2 % (42.0-52.0); HEMOGLOBIN 14.1 g/dl (13.5-17.5); IMMATURE GRANULOCYTE % 0.4 % (0-3.0); LYMPH # 0.5 10^3/uL (1.5-4.5); LYMPH % 5.2 % (24.0-44.0); MEAN CORPUSCULAR HEMOGLOBIN 30.3 pg (27.0-33.0); MEAN CORPUSCULAR HGB CONC 31.2 g/dl (32.0-36.5); MEAN CORPUSCULAR VOLUME 97.2 fl (80.0-96.0); MONO # 0.4 10^3/uL (0.0-0.8); MONO % 4.3 % (0.0-5.0); NEUTROPHILS # 9.2 10^3/uL (1.8-7.7); PLATELET COUNT, AUTOMATED 162 10^3/uL (150-450); RED BLOOD COUNT 4.65 10^6/uL (4.30-6.10); RED CELL DISTRIBUTION WIDTH 13.2 % (11.5-14.5); WHITE BLOOD COUNT 10.2 10^3/uL (4.0-10.0)
[2018-10-14] MEDS: LevoFLOXacin 500 MG TABLET PO (05:49)
[2018-10-14] MEDS: HEPARIN SOD (PORCINE) 5000 UNITS/ML VIAL SC ×3 (05:50→21:19)
[2018-10-14 06:01] LABS: ANION GAP 4 MEQ/L (8-16); BLOOD UREA NITROGEN 26 MG/DL (7-18); CALCIUM LEVEL 8.7 MG/DL (8.8-10.2); CARBON DIOXIDE LEVEL 36 MEQ/L (21-32); CHLORIDE LEVEL 97 MEQ/L (98-107); CREATININE FOR GFR 1.04 MG/DL (0.70-1.30); GLOMERULAR FILTRATION RATE > 60.0 (>42); GLUCOSE, FASTING 113 MG/DL (70-100); MAGNESIUM LEVEL 2.7 MG/DL (1.8-2.4); POTASSIUM SERUM 5.2 MEQ/L (3.5-5.1); SODIUM LEVEL 137 MEQ/L (136-145)
[2018-10-14] MEDS: IPRATROPIUM 0.5MG/ALBUTEROL 2.5MG INH SOL UD 3ML (DUONEB)(J7620) NEB ×4 (07:09→20:00)
[2018-10-14] MEDS: ADVAIR HFA 230/21MCG INHALER INH ×2 (07:09→20:42)
[2018-10-14] MEDS: DOCUSATE SODIUM 100 MG CAP PO ×2 (08:33→21:18)
[2018-10-14] MEDS: ASPIRIN 325 MG TAB PO (08:33)
[2018-10-14] MEDS: MOM 30ML SUSPENSION UDC PO (08:33)
[2018-10-14] MEDS: SENNA 8.6 MG TAB (SENOKOT) PO ×2 (08:33→21:18)
[2018-10-14] MEDS: guaiFENesin ER 600 MG TAB PO ×2 (08:34→21:18)
[2018-10-14] MEDS: predniSONE 20 MG TAB PO (08:34)
[2018-10-14] MEDS: TAMSULOSIN 0.4 MG CAP PO (08:34)
[2018-10-14] MEDS: PANTOPRAZOLE 40MG TAB (PROTONIX) PO (08:35)
[2018-10-15] MEDS: LEVALBUTEROL 1.25 MG/0.5 ML CONCENTRATE NEB NEB ×5 (01:56→20:00)
[2018-10-15] MEDS: HEPARIN SOD (PORCINE) 5000 UNITS/ML VIAL SC ×3 (05:05→21:09)
[2018-10-15] MEDS: LevoFLOXacin 500 MG TABLET PO (05:05)
[2018-10-15] MEDS: ADVAIR HFA 230/21MCG INHALER INH ×2 (07:22→20:47)
[2018-10-15] MEDS: IPRATROPIUM 0.5MG/ALBUTEROL 2.5MG INH SOL UD 3ML (DUONEB)(J7620) NEB ×4 (07:23→20:00)
[2018-10-15] MEDS: DOCUSATE SODIUM 100 MG CAP PO ×2 (10:13→21:09)
[2018-10-15] MEDS: MOM 30ML SUSPENSION UDC PO (10:13)
[2018-10-15] MEDS: TAMSULOSIN 0.4 MG CAP PO (10:14)
[2018-10-15] MEDS: guaiFENesin ER 600 MG TAB PO ×2 (10:14→21:09)
[2018-10-15] MEDS: predniSONE 20 MG TAB PO (10:14)
[2018-10-15] MEDS: PANTOPRAZOLE 40MG TAB (PROTONIX) PO (10:14)
[2018-10-15] MEDS: ASPIRIN 325 MG TAB PO (10:16)
[2018-10-15] MEDS: SENNA 8.6 MG TAB (SENOKOT) PO ×2 (10:16→21:09)
[2018-10-15 16:26] LABS: EOS # 0.1 10^3/uL (0.0-0.50); EOS % 0.5 % (0.0-3.0); HEMATOCRIT 44.8 % (42.0-52.0); HEMOGLOBIN 14.1 g/dl (13.5-17.5); IMMATURE GRANULOCYTE % 0.6 % (0-3.0); LYMPH # 0.4 10^3/uL (1.5-4.5); LYMPH % 3.7 % (24.0-44.0); MEAN CORPUSCULAR HEMOGLOBIN 29.9 pg (27.0-33.0); MEAN CORPUSCULAR HGB CONC 31.5 g/dl (32.0-36.5); MEAN CORPUSCULAR VOLUME 94.9 fl (80.0-96.0); MONO # 0.4 10^3/uL (0.0-0.8); MONO % 3.4 % (0.0-5.0); NEUTROPHILS # 10.3 10^3/uL (1.8-7.7); NEUTROPHILS % 91.8 % (36.0-66.0); PLATELET COUNT, AUTOMATED 167 10^3/uL (150-450); RED BLOOD COUNT 4.72 10^6/uL (4.30-6.10); RED CELL DISTRIBUTION WIDTH 13.2 % (11.5-14.5); WHITE BLOOD COUNT 11.3 10^3/uL (4.0-10.0)
[2018-10-15 16:35] LABS: ANION GAP 5 MEQ/L (8-16); BLOOD UREA NITROGEN 29 MG/DL (7-18); CALCIUM LEVEL 8.6 MG/DL (8.8-10.2); CARBON DIOXIDE LEVEL 35 MEQ/L (21-32); CHLORIDE LEVEL 100 MEQ/L (98-107); CREATININE FOR GFR 1.14 MG/DL (0.70-1.30); GLOMERULAR FILTRATION RATE > 60.0 (>42); GLUCOSE, FASTING 142 MG/DL (70-100); MAGNESIUM LEVEL 2.8 MG/DL (1.8-2.4); POTASSIUM SERUM 5.2 MEQ/L (3.5-5.1); SODIUM LEVEL 140 MEQ/L (136-145)
[2018-10-15] MEDS: ACETAMINOPHEN TAB 650MG DOSE (2X325MG) PO (21:08)
[2018-10-16] MEDS: LEVALBUTEROL 1.25 MG/0.5 ML CONCENTRATE NEB NEB ×6 (01:29→20:28)
[2018-10-16] MEDS: HEPARIN SOD (PORCINE) 5000 UNITS/ML VIAL SC ×3 (05:39→20:54)
[2018-10-16] MEDS: ACETAMINOPHEN TAB 650MG DOSE (2X325MG) PO (05:39)
[2018-10-16 05:58] LABS: HEMATOCRIT 44.3 % (42.0-52.0); MEAN CORPUSCULAR HGB CONC 31.6 g/dl (32.0-36.5); MEAN CORPUSCULAR VOLUME 95.1 fl (80.0-96.0); PLATELET COUNT, AUTOMATED 196 10^3/uL (150-450); RED BLOOD COUNT 4.66 10^6/uL (4.30-6.10); RED CELL DISTRIBUTION WIDTH 13.4 % (11.5-14.5)
[2018-10-16 06:22] LABS: ANION GAP 3 MEQ/L (8-16); BLOOD UREA NITROGEN 29 MG/DL (7-18); CALCIUM LEVEL 8.9 MG/DL (8.8-10.2); CARBON DIOXIDE LEVEL 39 MEQ/L (21-32); CHLORIDE LEVEL 97 MEQ/L (98-107); CREATININE FOR GFR 1.12 MG/DL (0.70-1.30); GLOMERULAR FILTRATION RATE > 60.0 (>42); GLUCOSE, FASTING 98 MG/DL (70-100); MAGNESIUM LEVEL 2.6 MG/DL (1.8-2.4); POTASSIUM SERUM 5.1 MEQ/L (3.5-5.1); SODIUM LEVEL 139 MEQ/L (136-145)
[2018-10-16] MEDS: IPRATROPIUM 0.5MG/ALBUTEROL 2.5MG INH SOL UD 3ML (DUONEB)(J7620) NEB ×3 (07:57→20:00)
[2018-10-16] MEDS: ASPIRIN 325 MG TAB PO (09:10)
[2018-10-16] MEDS: TAMSULOSIN 0.4 MG CAP PO (09:11)
[2018-10-16] MEDS: SENNA 8.6 MG TAB (SENOKOT) PO ×2 (09:11→20:49)
[2018-10-16] MEDS: guaiFENesin ER 600 MG TAB PO ×2 (09:11→20:50)
[2018-10-16] MEDS: DOCUSATE SODIUM 100 MG CAP PO ×2 (09:11→20:49)
[2018-10-16] MEDS: MOM 30ML SUSPENSION UDC PO (09:11)
[2018-10-16] MEDS: predniSONE 20 MG TAB PO (09:15)
[2018-10-16] MEDS: PANTOPRAZOLE 40MG TAB (PROTONIX) PO (09:15)
[2018-10-16] MEDS: ADVAIR HFA 230/21MCG INHALER INH ×2 (13:15→20:26)
[2018-10-16] MEDS: NORCO, ANEXSIA 5/325MG TABLET (HYDROcodone/ACETAMINOPHEN) PO (20:51)
[2018-10-17] MEDS: LEVALBUTEROL 1.25 MG/0.5 ML CONCENTRATE NEB NEB ×5 (04:28→20:08)
[2018-10-17 05:55] LABS: BASO % 0.2 % (0.0-1.0); EOS # 0.1 10^3/uL (0.0-0.50); EOS % 1.3 % (0.0-3.0); HEMATOCRIT 42.3 % (42.0-52.0); HEMOGLOBIN 13.4 g/dl (13.5-17.5); IMMATURE GRANULOCYTE % 0.7 % (0-3.0); LYMPH # 0.8 10^3/uL (1.5-4.5); MEAN CORPUSCULAR HEMOGLOBIN 30.5 pg (27.0-33.0); MEAN CORPUSCULAR HGB CONC 31.7 g/dl (32.0-36.5); MEAN CORPUSCULAR VOLUME 96.1 fl (80.0-96.0); MONO # 0.7 10^3/uL (0.0-0.8); MONO % 7.7 % (0.0-5.0); NEUTROPHILS # 7.3 10^3/uL (1.8-7.7); NEUTROPHILS % 81.1 % (36.0-66.0); PLATELET COUNT, AUTOMATED 183 10^3/uL (150-450); RED CELL DISTRIBUTION WIDTH 13.7 % (11.5-14.5)
[2018-10-17] MEDS: HEPARIN SOD (PORCINE) 5000 UNITS/ML VIAL SC (06:11)
[2018-10-17 06:26] LABS: ANION GAP 1 MEQ/L (8-16); BLOOD UREA NITROGEN 33 MG/DL (7-18); C REACTIVE PROTEIN QUANTITATIV 3.19 MG/DL (0.00-0.30); CALCIUM LEVEL 8.5 MG/DL (8.8-10.2); CARBON DIOXIDE LEVEL 40 MEQ/L (21-32); CHLORIDE LEVEL 99 MEQ/L (98-107); CREATININE FOR GFR 1.06 MG/DL (0.70-1.30); GLOMERULAR FILTRATION RATE > 60.0 (>42); GLUCOSE, FASTING 95 MG/DL (70-100); MAGNESIUM LEVEL 2.6 MG/DL (1.8-2.4); SODIUM LEVEL 140 MEQ/L (136-145)
[2018-10-17] MEDS: ADVAIR HFA 230/21MCG INHALER INH ×2 (07:25→20:09)
[2018-10-17] MEDS: IPRATROPIUM 0.5MG/ALBUTEROL 2.5MG INH SOL UD 3ML (DUONEB)(J7620) NEB ×4 (07:27→20:00)
[2018-10-17] MEDS ORDERED: PILL CRUSHER/CUTTER 1 EACH XX (09:15)
[2018-10-17] MEDS: ONDANSETRON 4MG/2ML VIAL (J2405) IV (09:23)
[2018-10-17] MEDS: SODIUM CHLORIDE HYPERTONIC 3% 15ML NEB SOL INH ×3 (11:48→20:08)
[2018-10-17 11:52] LABS: ALBUMIN 3.3 GM/DL (3.2-5.2)
[2018-10-17] MEDS: PANTOPRAZOLE 40MG TAB (PROTONIX) PO (12:01)
[2018-10-17] MEDS: TAMSULOSIN 0.4 MG CAP PO (12:01)
[2018-10-17] MEDS: ASPIRIN 325 MG TAB PO (12:01)
[2018-10-17] MEDS: guaiFENesin ER 600 MG TAB PO (12:02)
[2018-10-17] MEDS: DOCUSATE SODIUM 100 MG CAP PO (12:02)
[2018-10-17] MEDS: SENNA 8.6 MG TAB (SENOKOT) PO (12:02)
[2018-10-17] MEDS: MOM 30ML SUSPENSION UDC PO (12:03)
[2018-10-17 12:18] LABS: PREALBUMIN 26.3 MG/DL (20.0-40.0)
[2018-10-17] MEDS: D5W/0.45% SODIUM CHLORIDE 1,000 ML IV ×2 (12:46→21:02)
[2018-10-17] MEDS: methylPREDNISolone INJ 40 MG/1 ML VIAL (J2920) IV (14:50)
[2018-10-17] MEDS ORDERED: METOPROLOL 5 MG/5 ML VIAL IV (20:45)
[2018-10-17] MEDS: ENOXAPARIN 40 MG/0.4 ML SYRINGE (J1650) SC (21:02)
[2018-10-18] MEDS: LEVALBUTEROL 1.25 MG/0.5 ML CONCENTRATE NEB NEB ×2 (01:31→08:00)
[2018-10-18] MEDS: SODIUM CHLORIDE HYPERTONIC 3% 15ML NEB SOL INH ×6 (04:00→20:40)
[2018-10-18 05:19] LABS: BASO % 0.1 % (0.0-1.0); HEMATOCRIT 41.8 % (42.0-52.0); IMMATURE GRANULOCYTE % 0.7 % (0-3.0); LYMPH # 0.5 10^3/uL (1.5-4.5); LYMPH % 4.9 % (24.0-44.0); MEAN CORPUSCULAR HEMOGLOBIN 30.3 pg (27.0-33.0); MEAN CORPUSCULAR HGB CONC 31.1 g/dl (32.0-36.5); MEAN CORPUSCULAR VOLUME 97.4 fl (80.0-96.0); MONO # 0.5 10^3/uL (0.0-0.8); MONO % 4.6 % (0.0-5.0); NEUTROPHILS # 9.9 10^3/uL (1.8-7.7); NEUTROPHILS % 89.7 % (36.0-66.0); PLATELET COUNT, AUTOMATED 200 10^3/uL (150-450); RED BLOOD COUNT 4.29 10^6/uL (4.30-6.10); RED CELL DISTRIBUTION WIDTH 13.6 % (11.5-14.5)
[2018-10-18 05:34] LABS: ANION GAP 0 MEQ/L (8-16); BLOOD UREA NITROGEN 26 MG/DL (7-18); C REACTIVE PROTEIN QUANTITATIV 3.99 MG/DL (0.00-0.30); CALCIUM LEVEL 8.3 MG/DL (8.8-10.2); CARBON DIOXIDE LEVEL 40 MEQ/L (21-32); CHLORIDE LEVEL 100 MEQ/L (98-107); CREATININE FOR GFR 1.08 MG/DL (0.70-1.30); GLOMERULAR FILTRATION RATE > 60.0 (>42); GLUCOSE, FASTING 126 MG/DL (70-100); MAGNESIUM LEVEL 2.5 MG/DL (1.8-2.4); POTASSIUM SERUM 5.2 MEQ/L (3.5-5.1); SODIUM LEVEL 140 MEQ/L (136-145)
[2018-10-18] MEDS: D5W/0.45% SODIUM CHLORIDE 1,000 ML IV ×2 (06:35→16:14)
[2018-10-18] MEDS: ADVAIR HFA 230/21MCG INHALER INH ×2 (08:08→20:40)
[2018-10-18] MEDS: IPRATROPIUM 0.5MG/ALBUTEROL 2.5MG INH SOL UD 3ML (DUONEB)(J7620) NEB ×4 (08:09→20:39)
[2018-10-18] MEDS: PANTOPRAZOLE 40MG INJ (PROTONIX) (C9113) IV (08:26)
[2018-10-18] MEDS: methylPREDNISolone INJ 40 MG/1 ML VIAL (J2920) IV (08:27)
[2018-10-18] MEDS ORDERED: predniSONE 10 MG TAB PO (09:00)
[2018-10-18 09:46] LABS: ABG BASE EXCESS 7.5 (-2.0-2.0); ABG HCO3 33.9 MEQ/L (22.0-26.0); ABG O2 SATURATION 93.9 % (95.0-99.0); ABG PARTIAL PRESSURE CO2 55.1 mmHg (35.0-45.0); ABG STANDARD HCO3 31.3 MEQ/L (22.0-26.0); ABG TOTAL CO2 35.6 MEQ/L (23.0-31.0); ABG pH (ARTERIAL) 7.407 UNITS (7.350-7.450)
[2018-10-18 15:03] LABS: INR 0.94; PROTHROMBIN TIME 12.7 SECONDS (12.1-14.4)
[2018-10-19] MEDS: SODIUM CHLORIDE HYPERTONIC 3% 15ML NEB SOL INH ×7 (03:51→23:01)
[2018-10-19] MEDS: LEVALBUTEROL 1.25 MG/0.5 ML CONCENTRATE NEB NEB ×4 (04:16→23:00)
[2018-10-19 05:41] LABS: HEMATOCRIT 41.5 % (42.0-52.0); HEMOGLOBIN 13.3 g/dl (13.5-17.5); MEAN CORPUSCULAR HEMOGLOBIN 30.3 pg (27.0-33.0); MEAN CORPUSCULAR VOLUME 94.5 fl (80.0-96.0); PLATELET COUNT, AUTOMATED 187 10^3/uL (150-450); RED BLOOD COUNT 4.39 10^6/uL (4.30-6.10); RED CELL DISTRIBUTION WIDTH 13.4 % (11.5-14.5); WHITE BLOOD COUNT 12.4 10^3/uL (4.0-10.0)
[2018-10-19] MEDS: D5W/0.45% SODIUM CHLORIDE 1,000 ML IV ×2 (05:51→15:48)
[2018-10-19 06:00] LABS: ANION GAP 4 MEQ/L (8-16); BLOOD UREA NITROGEN 22 MG/DL (7-18); C REACTIVE PROTEIN QUANTITATIV 1.66 MG/DL (0.00-0.30); CARBON DIOXIDE LEVEL 33 MEQ/L (21-32); CHLORIDE LEVEL 99 MEQ/L (98-107); CREATININE FOR GFR 0.86 MG/DL (0.70-1.30); GLOMERULAR FILTRATION RATE > 60.0 (>42); GLUCOSE, FASTING 95 MG/DL (70-100); MAGNESIUM LEVEL 2.2 MG/DL (1.8-2.4); POTASSIUM SERUM 4.5 MEQ/L (3.5-5.1); SODIUM LEVEL 136 MEQ/L (136-145)
[2018-10-19] MEDS: IPRATROPIUM 0.5MG/ALBUTEROL 2.5MG INH SOL UD 3ML (DUONEB)(J7620) NEB ×4 (08:00→19:48)
[2018-10-19] MEDS: methylPREDNISolone INJ 40 MG/1 ML VIAL (J2920) IV (08:29)
[2018-10-19] MEDS: PANTOPRAZOLE 40MG INJ (PROTONIX) (C9113) IV (08:29)
[2018-10-19] MEDS: ADVAIR HFA 230/21MCG INHALER INH ×2 (09:00→19:48)
[2018-10-20] MEDS: D5W/0.45% SODIUM CHLORIDE 1,000 ML IV ×2 (02:56→21:29)
[2018-10-20] MEDS: LEVALBUTEROL 1.25 MG/0.5 ML CONCENTRATE NEB NEB ×2 (03:55→07:41)
[2018-10-20] MEDS: SODIUM CHLORIDE HYPERTONIC 3% 15ML NEB SOL INH ×5 (03:55→20:00)
[2018-10-20 06:11] LABS: HEMATOCRIT 40.5 % (42.0-52.0); HEMOGLOBIN 12.9 g/dl (13.5-17.5); MEAN CORPUSCULAR HEMOGLOBIN 30.1 pg (27.0-33.0); MEAN CORPUSCULAR HGB CONC 31.9 g/dl (32.0-36.5); MEAN CORPUSCULAR VOLUME 94.4 fl (80.0-96.0); PLATELET COUNT, AUTOMATED 203 10^3/uL (150-450); RED BLOOD COUNT 4.29 10^6/uL (4.30-6.10); RED CELL DISTRIBUTION WIDTH 13.6 % (11.5-14.5)
[2018-10-20 06:36] LABS: ANION GAP 3 MEQ/L (8-16); BLOOD UREA NITROGEN 16 MG/DL (7-18); CALCIUM LEVEL 8.1 MG/DL (8.8-10.2); CARBON DIOXIDE LEVEL 35 MEQ/L (21-32); CHLORIDE LEVEL 100 MEQ/L (98-107); CREATININE FOR GFR 0.88 MG/DL (0.70-1.30); GLOMERULAR FILTRATION RATE > 60.0 (>42); GLUCOSE, FASTING 112 MG/DL (70-100); MAGNESIUM LEVEL 2.3 MG/DL (1.8-2.4); SODIUM LEVEL 138 MEQ/L (136-145)
[2018-10-20] MEDS: IPRATROPIUM 0.5MG/ALBUTEROL 2.5MG INH SOL UD 3ML (DUONEB)(J7620) NEB ×5 (07:42→20:00)
[2018-10-20] MEDS: ADVAIR HFA 230/21MCG INHALER INH ×2 (09:00→20:24)
[2018-10-20] MEDS ORDERED: SLF 3 ML SYR IV (10:00)
[2018-10-20] MEDS: methylPREDNISolone INJ 40 MG/1 ML VIAL (J2920) IV (10:10)
[2018-10-20] MEDS: PANTOPRAZOLE 40MG INJ (PROTONIX) (C9113) IV (10:11)
[2018-10-20] MEDS ORDERED: THROMBIN SOLN 5,000 UNITS VIAL As Ordered (10:42)
[2018-10-20] MEDS ORDERED: LIDOCAINE 1% SDV INJ 30 ML VIAL As Ordered (10:43)
[2018-10-20] MEDS ORDERED: LIDOCAINE VISCOUS 2% SOLN 15ML UDC As Ordered (10:43)
[2018-10-20] MEDS ORDERED: EPINEPHrine 1MG/10ML SYRINGE 1.5IN As Ordered (10:43)
[2018-10-20] MEDS ORDERED: ONDANSETRON 4MG/2ML VIAL (J2405) As Ordered (11:11)
[2018-10-20] MEDS ORDERED: PROPOFOL 200 MG/20 ML VIAL As Ordered (11:11)
[2018-10-20] MEDS ORDERED: LIDOCAINE 2% INJ 100 MG/5 ML SDV (FOR ANES.) As Ordered (11:11)
[2018-10-20] MEDS ORDERED: fentaNYL 100 MCG/2 ML INJECTION (J3010) As Ordered (11:11)
[2018-10-20] MEDS ORDERED: MIDAZOLAM INJ 2 MG/2 ML VIAL (J2250) As Ordered (11:11)
[2018-10-20] MEDS ORDERED: ROCURONIUM BROMIDE 50 MG/5 ML VIAL As Ordered (11:11)
[2018-10-20] MEDS ORDERED: dexameTHASONE 4 MG/ML 1ML VIAL (J1100) As Ordered (11:11)
[2018-10-20] MEDS ORDERED: SUCCINYLCHOLINE 100 MG/5 ML SYRINGE (J0330) As Ordered (12:05)
[2018-10-20] MEDS ORDERED: PHENYLephrine HCL 500 MCG/5 ML (100MCG/ML) SYRINGE (J2370) As Ordered (12:05)
[2018-10-20] MEDS: CETACAINE SPRAY 5GM As Ordered (12:11)
[2018-10-20] MEDS: ceFAZolin 2 GM/D5W 50 ML IV BAG (J0690 PER 500MG) As Ordered (13:00)
[2018-10-20] MEDS: LIDOCAINE 2% INJ 100 MG/5 ML SDV (FOR ANES.) SC (13:35)
[2018-10-20] MEDS: SLF 3 ML SYR IV ×2 (14:00→21:47)
[2018-10-20] MEDS ORDERED: fentaNYL 100 MCG/2 ML INJECTION (J3010) IV (14:15)
[2018-10-20] MEDS ORDERED: ROPIvacaine 0.5% 30 ML INJECTION (J2795 PER 1MG) As Ordered (16:15)
[2018-10-21] MEDS: SODIUM CHLORIDE HYPERTONIC 3% 15ML NEB SOL INH ×6 (04:00→19:31)
[2018-10-21] MEDS: LEVALBUTEROL 1.25 MG/0.5 ML CONCENTRATE NEB NEB ×2 (05:38→09:51)
[2018-10-21] MEDS: SLF 3 ML SYR IV ×3 (06:00→21:47)
[2018-10-21 06:05] LABS: HEMATOCRIT 42.1 % (42.0-52.0); HEMOGLOBIN 13.1 g/dl (13.5-17.5); MEAN CORPUSCULAR HEMOGLOBIN 29.9 pg (27.0-33.0); MEAN CORPUSCULAR HGB CONC 31.1 g/dl (32.0-36.5); MEAN CORPUSCULAR VOLUME 96.1 fl (80.0-96.0); PLATELET COUNT, AUTOMATED 213 10^3/uL (150-450); RED BLOOD COUNT 4.38 10^6/uL (4.30-6.10); RED CELL DISTRIBUTION WIDTH 13.4 % (11.5-14.5); WHITE BLOOD COUNT 11.6 10^3/uL (4.0-10.0)
[2018-10-21 06:39] LABS: ANION GAP 2 MEQ/L (8-16); BLOOD UREA NITROGEN 16 MG/DL (7-18); CARBON DIOXIDE LEVEL 37 MEQ/L (21-32); CHLORIDE LEVEL 100 MEQ/L (98-107); CREATININE FOR GFR 0.94 MG/DL (0.70-1.30); GLOMERULAR FILTRATION RATE > 60.0 (>42); GLUCOSE, FASTING 100 MG/DL (70-100); MAGNESIUM LEVEL 2.2 MG/DL (1.8-2.4); SODIUM LEVEL 139 MEQ/L (136-145)
[2018-10-21] MEDS: ADVAIR HFA 230/21MCG INHALER INH ×2 (07:36→19:30)
[2018-10-21] MEDS: IPRATROPIUM 0.5MG/ALBUTEROL 2.5MG INH SOL UD 3ML (DUONEB)(J7620) NEB ×4 (08:00→19:30)
[2018-10-21] MEDS: D5W/0.45% SODIUM CHLORIDE 1,000 ML IV (08:48)
[2018-10-21] MEDS: PANTOPRAZOLE 40MG INJ (PROTONIX) (C9113) IV (08:49)
[2018-10-21] MEDS: ENOXAPARIN 40 MG/0.4 ML SYRINGE (J1650) SC (11:25)
[2018-10-21] MEDS ORDERED: ACETAMINOPHEN 325 MG/10.15 ML UDC PEG (13:45)
[2018-10-21] MEDS: FUROSEMIDE 40 MG/4 ML VIAL (J1940) IV (15:14)
[2018-10-21] MEDS ORDERED: ISOVUE-370 76% 100ML VIAL (Q9967) As Ordered (15:26)
[2018-10-21] MEDS: METOPROLOL SUCC (TopROL XL) 50MG **XL** TAB PO (17:07)
[2018-10-21] MEDS: FLEET ENEMA PR (21:47)
[2018-10-22] MEDS: SODIUM CHLORIDE HYPERTONIC 3% 15ML NEB SOL INH ×6 (01:18→20:55)
[2018-10-22 05:52] LABS: HEMATOCRIT 44.6 % (42.0-52.0); HEMOGLOBIN 13.8 g/dl (13.5-17.5); MEAN CORPUSCULAR HGB CONC 30.9 g/dl (32.0-36.5); PLATELET COUNT, AUTOMATED 214 10^3/uL (150-450); RED CELL DISTRIBUTION WIDTH 13.4 % (11.5-14.5); WHITE BLOOD COUNT 11.6 10^3/uL (4.0-10.0)
[2018-10-22] MEDS: SLF 3 ML SYR IV ×3 (06:02→20:24)
[2018-10-22 06:18] LABS: ANION GAP 5 MEQ/L (8-16); BLOOD UREA NITROGEN 19 MG/DL (7-18); CALCIUM LEVEL 8.1 MG/DL (8.8-10.2); CARBON DIOXIDE LEVEL 41 MEQ/L (21-32); CHLORIDE LEVEL 96 MEQ/L (98-107); CREATININE FOR GFR 0.86 MG/DL (0.70-1.30); GLOMERULAR FILTRATION RATE > 60.0 (>42); GLUCOSE, FASTING 152 MG/DL (70-100); MAGNESIUM LEVEL 2.3 MG/DL (1.8-2.4); POTASSIUM SERUM 4.2 MEQ/L (3.5-5.1); SODIUM LEVEL 142 MEQ/L (136-145)
[2018-10-22] MEDS: ADVAIR HFA 230/21MCG INHALER INH ×2 (06:19→20:56)
[2018-10-22] MEDS: IPRATROPIUM 0.5MG/ALBUTEROL 2.5MG INH SOL UD 3ML (DUONEB)(J7620) NEB ×4 (06:19→20:55)
[2018-10-22] MEDS: ENOXAPARIN 40 MG/0.4 ML SYRINGE (J1650) SC ×2 (09:00)
[2018-10-22] MEDS: PANTOPRAZOLE 40MG INJ (PROTONIX) (C9113) IV (10:02)
[2018-10-22] MEDS: FUROSEMIDE 40 MG/4 ML VIAL (J1940) IV (10:02)
[2018-10-22] MEDS ORDERED: LIDOCAINE 1% MDV 20ML VIAL As Ordered (13:14)
[2018-10-22] MEDS ORDERED: FLUMAZENIL 0.5 MG/5 ML VIAL As Ordered (13:15)
[2018-10-22] MEDS ORDERED: MIDAZOLAM INJ 2 MG/2 ML VIAL (J2250) As Ordered ×3 (13:15)
[2018-10-22] MEDS: LIDOCAINE 1% MDV 20ML VIAL SC (13:27)
[2018-10-22] MEDS: MIDAZOLAM INJ 2 MG/2 ML VIAL (J2250) IV (13:27)
[2018-10-22] MEDS ORDERED: KETOROLAC 30 MG/ML VIAL (J1885) As Ordered (13:52)
[2018-10-22] MEDS: KETOROLAC 30 MG/ML VIAL (J1885) IV (14:00)
[2018-10-22] MEDS ORDERED: BISACODYL 10 MG SUPP PR (14:00)
[2018-10-22 14:09] LABS: LDH LACTATE DEHYDROGENASE 267 U/L (87-241)
[2018-10-22 14:37] LABS: SOURCE, BODY FLUID pH PLEURAL
[2018-10-22 14:38] LABS: BF MONONUCLEAR CELL % 61.4 % (0-0); BF POLYMORPHONUCLEAR CELL % 38.6 % (0-0); RBC BODY FLUID 63 10^3/uL (<2); WBC BODY FLUID 176 /uL (0-10)
[2018-10-22 14:43] LABS: APPEARANCE, BODY FLUID HAZY (CLEAR); BF DIFF IF INDICATED? YES (NO); PLEURAL FL COLOR RED (COLORLESS); SOURCE, BODY FLUID PLEURAL
[2018-10-22 14:55] LABS: AMYLASE, BODY FLUID 19 U/L (NOT ESTABLISHED); CHOLESTEROL, BODY FLUID < 50 MG/DL (NOT ESTABLISHED); LDH, BODY FLUID 254 U/L (NOT ESTABLISHED); SOURCE, BODY FLUID ALBUMIN PLEURAL; SOURCE, BODY FLUID AMYLASE PLEURAL; SOURCE, BODY FLUID CHOL PLEURAL; SOURCE, BODY FLUID GLUCOSE PLEURAL; SOURCE, BODY FLUID LDH PLEURAL; SOURCE, BODY FLUID TOT PROTEIN PLEURAL; SOURCE, BODY FLUID TRIG PLEURAL; TRIGLYCERIDE, BODY FLUID 15 MG/DL (NOT ESTABLISHED)
[2018-10-22 18:21] LABS: BEDSIDE GLUCOSE 149 MG/DL (83-110)
[2018-10-22] MEDS: DOCUSATE SOD LIQ 100MG/10ML UDC GT (20:23)
[2018-10-22] MEDS ORDERED: DOCUSATE SODIUM 100 MG CAP PO (21:00)
[2018-10-22] MEDS: PERCOCET 5MG/325MG TAB PO (21:47)
[2018-10-23] MEDS: NS 500 ML IV ×3 (02:30→17:30)
[2018-10-23] MEDS: LEVALBUTEROL 1.25 MG/0.5 ML CONCENTRATE NEB NEB (04:08)
[2018-10-23] MEDS: SODIUM CHLORIDE HYPERTONIC 3% 15ML NEB SOL INH ×6 (04:08→20:33)
[2018-10-23 04:40] LABS: BASO % 0.1 % (0.0-1.0); EOS # 0.3 10^3/uL (0.0-0.50); EOS % 3.2 % (0.0-3.0); HEMATOCRIT 43.7 % (42.0-52.0); HEMOGLOBIN 13.4 g/dl (13.5-17.5); IMMATURE GRANULOCYTE % 0.8 % (0-3.0); LYMPH # 0.7 10^3/uL (1.5-4.5); LYMPH % 6.3 % (24.0-44.0); MEAN CORPUSCULAR HEMOGLOBIN 29.7 pg (27.0-33.0); MEAN CORPUSCULAR HGB CONC 30.7 g/dl (32.0-36.5); MEAN CORPUSCULAR VOLUME 96.9 fl (80.0-96.0); MONO # 0.9 10^3/uL (0.0-0.8); NEUTROPHILS # 8.4 10^3/uL (1.8-7.7); NEUTROPHILS % 80.6 % (36.0-66.0); PLATELET COUNT, AUTOMATED 176 10^3/uL (150-450); RED BLOOD COUNT 4.51 10^6/uL (4.30-6.10); RED CELL DISTRIBUTION WIDTH 13.1 % (11.5-14.5); WHITE BLOOD COUNT 10.5 10^3/uL (4.0-10.0)
[2018-10-23 05:02] LABS: ANION GAP 3 MEQ/L (8-16); BLOOD UREA NITROGEN 26 MG/DL (7-18); CALCIUM LEVEL 7.9 MG/DL (8.8-10.2); CARBON DIOXIDE LEVEL 43 MEQ/L (21-32); CHLORIDE LEVEL 94 MEQ/L (98-107); CREATININE FOR GFR 0.79 MG/DL (0.70-1.30); GLOMERULAR FILTRATION RATE > 60.0 (>42); GLUCOSE, FASTING 136 MG/DL (70-100); POTASSIUM SERUM 4.2 MEQ/L (3.5-5.1); SODIUM LEVEL 140 MEQ/L (136-145)
[2018-10-23] MEDS: PERCOCET 5MG/325MG TAB PO ×2 (05:42→20:30)
[2018-10-23] MEDS: SLF 3 ML SYR IV ×3 (05:43→22:00)
[2018-10-23 06:26] LABS: ABG BASE EXCESS 17.6 (-2.0-2.0); ABG HCO3 47.5 MEQ/L (22.0-26.0); ABG O2 SATURATION 97.7 % (95.0-99.0); ABG PARTIAL PRESSURE O2 92.1 mmHg (75.0-100.0); ABG STANDARD HCO3 41.7 MEQ/L (22.0-26.0); ABG TOTAL CO2 50.2 MEQ/L (23.0-31.0); ABG pH (ARTERIAL) 7.359 UNITS (7.350-7.450)
[2018-10-23 06:27] LABS: ABG PARTIAL PRESSURE CO2 86.3 mmHg (35.0-45.0)
[2018-10-23] MEDS: ADVAIR HFA 230/21MCG INHALER INH ×2 (07:46→20:33)
[2018-10-23] MEDS: IPRATROPIUM 0.5MG/ALBUTEROL 2.5MG INH SOL UD 3ML (DUONEB)(J7620) NEB ×4 (07:47→20:33)
[2018-10-23] MEDS: ENOXAPARIN 40 MG/0.4 ML SYRINGE (J1650) SC (09:46)
[2018-10-23] MEDS: PANTOPRAZOLE 40MG INJ (PROTONIX) (C9113) IV (09:46)
[2018-10-23] MEDS: methylPREDNISolone INJ 125 MG/2 ML VIAL (J2930) IV ×2 (09:47→17:34)
[2018-10-23] MEDS: DOCUSATE SOD LIQ 100MG/10ML UDC GT ×2 (09:47→20:30)
[2018-10-23] MEDS: MOM 30ML SUSPENSION UDC PO (09:47)
[2018-10-23] MEDS ORDERED: guaiFENesin ER 600 MG TAB PO (21:00)
[2018-10-23] MEDS ORDERED: guaiFENesin SYRUP 200 MG/10 ML UDC PO (22:15)
[2018-10-24] MEDS: SODIUM CHLORIDE HYPERTONIC 3% 15ML NEB SOL INH ×4 (00:15→11:22)
[2018-10-24] MEDS: IPRATROPIUM 0.5MG/ALBUTEROL 2.5MG INH SOL UD 3ML (DUONEB)(J7620) NEB ×3 (00:15→07:26)
[2018-10-24] MEDS: SLF 3 ML SYR IV (02:10)
[2018-10-24] MEDS: methylPREDNISolone INJ 125 MG/2 ML VIAL (J2930) IV (02:10)
[2018-10-24 04:46] LABS: HEMATOCRIT 42.7 % (42.0-52.0); HEMOGLOBIN 13.1 g/dl (13.5-17.5); IMMATURE GRANULOCYTE % 0.5 % (0-3.0); LYMPH % 1.6 % (24.0-44.0); MEAN CORPUSCULAR HEMOGLOBIN 29.8 pg (27.0-33.0); MEAN CORPUSCULAR HGB CONC 30.7 g/dl (32.0-36.5); MEAN CORPUSCULAR VOLUME 97.3 fl (80.0-96.0); MONO # 0.2 10^3/uL (0.0-0.8); MONO % 1.5 % (0.0-5.0); NEUTROPHILS # 10.5 10^3/uL (1.8-7.7); NEUTROPHILS % 96.4 % (36.0-66.0); PLATELET COUNT, AUTOMATED 147 10^3/uL (150-450); RED BLOOD COUNT 4.39 10^6/uL (4.30-6.10); RED CELL DISTRIBUTION WIDTH 12.7 % (11.5-14.5); WHITE BLOOD COUNT 10.9 10^3/uL (4.0-10.0)
[2018-10-24 05:10] LABS: LYMPH # 0.2 10^3/uL (1.5-4.5); POSITIVE DIFF POS FLAG
[2018-10-24 05:15] LABS: ANION GAP 5 MEQ/L (8-16); BLOOD UREA NITROGEN 25 MG/DL (7-18); CARBON DIOXIDE LEVEL 41 MEQ/L (21-32); CHLORIDE LEVEL 97 MEQ/L (98-107); CREATININE FOR GFR 0.84 MG/DL (0.70-1.30); GLOMERULAR FILTRATION RATE > 60.0 (>42); GLUCOSE, FASTING 228 MG/DL (70-100); POTASSIUM SERUM 4.7 MEQ/L (3.5-5.1); SODIUM LEVEL 143 MEQ/L (136-145)
[2018-10-24] MEDS: NS 500 ML IV (06:32)
[2018-10-24] MEDS: ADVAIR HFA 230/21MCG INHALER INH (07:26)
[2018-10-24] MEDS: DOCUSATE SOD LIQ 100MG/10ML UDC GT ×2 (09:00→20:21)
[2018-10-24] MEDS: LEVALBUTEROL 1.25 MG/0.5 ML CONCENTRATE NEB NEB ×2 (11:22→20:46)
[2018-10-24] MEDS ORDERED: SODIUM CHLORIDE HYPERTONIC 3% 15ML NEB SOL INH (16:00)
[2018-10-24] MEDS: MORPHINE SULFATE ORAL SOLN 10 MG/5 ML UD SL (16:30)
[2018-10-24] MEDS: MORPHINE 4 MG/ML 1ML VIAL/SYRINGE (J2270) IV (17:42)
[2018-10-25] MEDS: MORPHINE 4 MG/ML 1ML VIAL/SYRINGE (J2270) IV ×4 (03:38→16:03)
[2018-10-25] MEDS: DOCUSATE SOD LIQ 100MG/10ML UDC GT (08:02)
[2018-10-25] MEDS: SCOPOLAMINE 1MG TRANSDERMAL PATCH TOP (12:27)
[2018-10-25] MEDS ORDERED: SIMETHICONE 80 MG CHEW TAB PEG (12:30)
[2018-10-25] MEDS: KETOROLAC 30 MG/ML VIAL (J1885) IV (13:07)
[2018-10-25] MEDS ORDERED: MORPHINE SULFATE ORAL SOLN 10 MG/5 ML UD SL (13:15)
[2018-10-25] MEDS ORDERED: LORazepam 2 MG/ML VIAL (J2060) IV (13:15)
== END 2018-10-25 17:20 | disposition expired | DRG 166 ==
LOC: M ICU 10-22 13:13 → M MSPAV 10-24 14:35 → M PCU 10-11 20:41 → M ED 02:26 → M ED INP 06:21 → M MS5PR 09:04 → M PCU 12:09 → M ICU 12:47
PROC: 0BBJ8ZX Excision of Left Lower Lung Lobe, Via Natural or Artificial Opening Endoscopic, Diagnostic (ICD-10-PCS; principal; 2018-10-20 10:30)
PROC: 07B74ZX Excision of Thorax Lymphatic, Percutaneous Endoscopic Approach, Diagnostic (ICD-10-PCS; 2018-10-20 10:30)
PROC: 0BDJ8ZX Extraction of Left Lower Lung Lobe, Via Natural or Artificial Opening Endoscopic, Diagnostic (ICD-10-PCS; 2018-10-20 10:30)
PROC: 0DH68UZ Insertion of Feeding Device into Stomach, Via Natural or Artificial Opening Endoscopic (ICD-10-PCS; 2018-10-20 10:30)
PROC: 0W9B40Z Drainage of Left Pleural Cavity with Drainage Device, Percutaneous Endoscopic Approach (ICD-10-PCS; 2018-10-20 11:51)
PROC: 0W9B00Z Drainage of Left Pleural Cavity with Drainage Device, Open Approach (ICD-10-PCS; 2018-10-20 11:51)
DX: C34.32 Malignant neoplasm of lower lobe, left bronchus or lung (principal); J69.0 Pneumonitis due to inhalation of food and vomit; J96.22 Acute and chronic respiratory failure with hypercapnia; J44.0 Chronic obstructive pulmonary disease with (acute) lower respiratory infection; J44.1 Chronic obstructive pulmonary disease with (acute) exacerbation; J91.0 Malignant pleural effusion; E46 Unspecified protein-calorie malnutrition; I10 Essential (primary) hypertension; N40.0 Benign prostatic hyperplasia without lower urinary tract symptoms; Z51.5 Encounter for palliative care; Z66 Do not resuscitate; E87.5 Hyperkalemia; R13.10 Dysphagia, unspecified; Z85.118 Personal history of other malignant neoplasm of bronchus and lung; R00.0 Tachycardia, unspecified; Z90.2 Acquired absence of lung [part of]; Z87.891 Personal history of nicotine dependence; Z92.21 Personal history of antineoplastic chemotherapy; Z92.3 Personal history of irradiation; Z79.82 Long term (current) use of aspirin; Z79.899 Other long term (current) drug therapy